=== PATIENT | male | born 1980 ===

== ENCOUNTER 2023-11-24 06:29 | Day surgery (SDC) | payer OTHER ==
[2023-11-24] MEDS ORDERED: METRONIDAZOLE/SODIUM CHLORIDE 500 MG/100 ML PIGGYBACK IV ONE (10:45)
[2023-11-24] MEDS ORDERED: CEFTRIAXONE SODIUM 2,000 MG VIAL IV ONE (10:45)
[2023-11-24] MEDS ORDERED: DIBUCAINE 15 GM OINT..GM. TUBE RECTAL ONE (10:45)
[2023-11-24] MEDS ORDERED: POVIDONE-IODINE 118 ML BOTT TOP ONE (10:45)
[2023-11-24] MEDS ORDERED: HEMOSTATIC MATRIX 1 KIT KIT TOP ONE (10:45)
[2023-11-24] MEDS ORDERED: TAMSULOSIN HCL 0.4 MG CAP PO STA (11:39)
[2023-11-24] MEDS ORDERED: PERCOCET 5-3251 EACH PO (11:40)
[2023-11-24] MEDS ORDERED: RECTICARE30 GM TOP (11:41)
== END 2023-11-24 18:00 | disposition home or self-care (01) ==
LOC: CIR.AMB 06:29
PROVIDERS: ATTEND Surgery
DX: K64.2 Third degree hemorrhoids (principal); R19.5 Other fecal abnormalities; D64.9 Anemia, unspecified